=== PATIENT | male | born 1950 | race Caucasian/White ===

== ENCOUNTER 2017-07-16 11:58 | Inpatient (IN) | payer OTHER ==
[~2017-07-16] VITALS: Ht 180.3 cm; Wt 93.1 kg
[~2017-07-16 11:58] MED LIST: ALLOPURINOL100 MG PO; ASPIR 8181 M1 PO; ASPIR-LOW81 MG PO; BRILINTA90 MG PO; LISINOPRIL40 MG PO; LOTREL 5/201 CAPSULE PO; Lipitor PO; Lopressor PO; METOPROLOL TART25 MG PO; OMEPRAZOLE20 M2 PO; PRILOSEC20 MG PO; VITAMIN D1000 UNIT PO; Vitamin D PO; Zestril,Prinivil PO
[2017-07-16 12:29] LABS: BASOPHIL (%) 0.3 % (0-1); EOSINOPHIL (%) 3.2 % (0-5); EOSINOPHIL COUNT 0.4 K/uL (0-0.3); HEMATOCRIT 40.7 % (38.0-50.0); HEMOGLOBIN 14.8 G/DL (12.5-16.6); IMMATURE GRANULOCYTE (%) 0.6 % (0.0-0.7); LYMPHOCYTE COUNT 5.1 K/uL (1.0-2.8); MCH 33.4 PG (29.0-34.0); MCHC 36.4 G/DL (30.0-36.0); MCV 91.9 FL (86-99); MONOCYTE (%) 6.5 % (3-12); MONOCYTE COUNT 0.9 K/uL (0-0.8); NEUTROPHIL (%) 52.4 % (45-76); NEUTROPHIL COUNT 7.3 K/uL (1.8-6.4); PLATELET COUNT 168 K/uL (156-360); RBC DIS.WIDTH-CV 12.4 % (11.8-14.6); RBC DIS.WIDTH-SD 41.6 % (39-53); RED BLOOD COUNT 4.43 M/uL (4.00-5.50); WHITE BLOOD COUNT 13.9 K/uL (4.1-10.2)
[2017-07-16 12:43] LABS: ALBUMIN 3.8 g/dL (3.2-4.8); CHLORIDE 100 mEq/L (99-109); POTASSIUM 3.8 mEq/L (3.7-5.4); SODIUM 134 mEq/L (136-147)
[2017-07-16 12:45] LABS: GLUCOSE 133 mg/dL (70-99); TOTAL PROTEIN 6.7 g/dL (6.4-8.3)
[2017-07-16 12:47] LABS: TOTAL BILIRUBIN 1.1 mg/dL (0.0-1.0)
[2017-07-16 12:49] LABS: ALKALINE PHOSPHATASE 45 IU/L (3-129); CREATININE 0.9 mg/dL (0.6-1.3); GFR ESTIMATE (CALCULATED) > 59 mL/min/ (58.99-99999); TROP-I INTERPRETATION NEGATIVE; TROPONIN-I 0.01 ng/mL (0.0-0.30)
[2017-07-16 12:50] LABS: UREA NITROGEN (BUN) 16 mg/dL (9-23)
[2017-07-16 12:51] LABS: AST (GOT) 38 IU/L (2-34)
[2017-07-16 12:52] LABS: ALT (GPT) 34 IU/L (3-49)
[2017-07-16] MEDS ORDERED: RANITIDINE HCL300 MG PO (18:39)
[2017-07-16] MEDS ORDERED: LOPRESSOR50 MG PO (18:42)
[2017-07-16] MEDS ORDERED: TUMS500 MG PO (18:48)
[2017-07-16 21:04] VITALS: BP 164/98
[2017-07-16 21:58] LABS: HDL CHOLESTEROL 26 MG/DL (Desirable>=40); LDL CHOLESTEROL 64 mg/dL (Desirable<100); NON-HDL CHOLESTEROL 112 mg/dL (Desirable<160); TOTAL CHOLESTEROL 138 mg/dL (Desirable<200); TRIGLYCERIDES 242 MG/DL (Normal: <150)
[2017-07-16 22:46] LABS: Estimated Average Glucose 100 mg/dL (70-123); HEMOGLOBIN A1c (GLYCOHEMOGLOB) 5.1 % HGB (Below 5.7)
[2017-07-17 00:49] LABS: TROP-I INTERPRETATION NEGATIVE; TROPONIN-I 0.03 ng/mL (0.0-0.30)
[2017-07-17 03:28] VITALS: BP 154/86
[2017-07-17 03:35] LABS: APPEARANCE SL.HAZY ((CLEAR)); BILIRUBIN NEGATIVE; BLOOD NEGATIVE; COLOR YELLOW ((YELLOW)); GLUCOSE (STRIP) NEGATIVE; KETONES NEGATIVE; LEUKOCYTES NEGATIVE; NITRITE NEGATIVE; PROTEIN (STRIP) NEGATIVE; SPECIFIC GRAVITY 1.015 (1.000-1.030); UROBILINOGEN 0.2 MG/DL (0.2-1.0)
[2017-07-17 03:37] LABS: BACTERIA NONE SEEN /HPF; EPITHELIAL CELLS NONE SEEN /HPF; MUCUS TRACE /LPF; RED BLOOD CELLS 0-5 /HPF (0-5); UCUL ADDED? NO; WHITE BLOOD CELLS 0-5 /HPF (0-5)
[2017-07-17 07:20] VITALS: BP 161/94
[2017-07-17 07:24] LABS: HEMATOCRIT 39.2 % (38.0-50.0); HEMOGLOBIN 13.8 G/DL (12.5-16.6); MCH 32.7 PG (29.0-34.0); MCHC 35.2 G/DL (30.0-36.0); MCV 92.9 FL (86-99); PLATELET COUNT 141 K/uL (156-360); RBC DIS.WIDTH-CV 12.4 % (11.8-14.6); RBC DIS.WIDTH-SD 42.3 % (39-53); RED BLOOD COUNT 4.22 M/uL (4.00-5.50); WHITE BLOOD COUNT 9.7 K/uL (4.1-10.2)
[2017-07-17 07:47] LABS: TROP-I INTERPRETATION NEGATIVE; TROPONIN-I 0.03 ng/mL (0.0-0.30)
[2017-07-17 11:21] VITALS: BP 141/76
[2017-07-17 17:11] VITALS: BP 161/93
[2017-07-17 20:32] VITALS: BP 180/92
[2017-07-17 20:36] VITALS: BP 150/82
[2017-07-18 01:40] VITALS: BP 171/107
[2017-07-18 08:00] VITALS: BP 169/97
[2017-07-18] MEDS ORDERED: ATORVASTATIN CA80 MG PO (09:45)
[2017-07-18] MEDS ORDERED: CLOPIDOGREL75 MG PO (09:45)
== END 2017-07-18 10:57 | disposition home or self-care (01) | DRG 66 ==
LOC: EME 11:58 → EDOF 18:53 → 5SOUTH 18:53 → ENRESERV 18:54 → 5SOUTH 20:50
PROVIDERS: Emergency Medicine; Hospitalist
DX: I63.213 Cerebral infarction due to unspecified occlusion or stenosis of bilateral vertebral arteries (principal); E83.118 Other hemochromatosis; I10 Essential (primary) hypertension; I49.3 Ventricular premature depolarization; K21.9 Gastro-esophageal reflux disease without esophagitis; K76.0 Fatty (change of) liver, not elsewhere classified; M10.9 Gout, unspecified; I25.10 Atherosclerotic heart disease of native coronary artery without angina pectoris; I25.2 Old myocardial infarction; Z79.82 Long term (current) use of aspirin; Z87.891 Personal history of nicotine dependence; Z95.5 Presence of coronary angioplasty implant and graft
CPT/HCPCS: 70496; 70498; 70551; 71010; 80053; 80061; 81003; 83036; 84484; 85025; 85027; 85651; 93005; 99281; 99285; J1644; J2405; J7030

== ENCOUNTER 2017-07-28 13:03 | Emergency (ER) | payer OTHER ==
[~2017-07-28] VITALS: Ht 180.3 cm; Wt 89.2 kg
[~2017-07-28 13:03] MED LIST changes: +ATORVASTATIN CA80 MG PO; +CLOPIDOGREL75 MG PO; +LOPRESSOR50 MG PO; +RANITIDINE HCL300 MG PO; +TUMS500 MG PO
[2017-07-28 13:31] LABS: AMYLASE 81 IU/L (1-118)
[2017-07-28 13:33] LABS: INTER. NORMALIZED RATIO 1.2
[2017-07-28 13:40] LABS: LIPASE 41 U/L (1.0-51.0)
[2017-07-28 13:42] LABS: TROP-I INTERPRETATION NEGATIVE; TROPONIN-I < 0.01 ng/mL (0.0-0.30)
[2017-07-28 14:28] LABS: CHLORIDE 101 mEq/L (99-109); POTASSIUM 4.1 mEq/L (3.7-5.4); SODIUM 137 mEq/L (136-147)
[2017-07-28 14:29] LABS: HEMATOCRIT 41.7 % (38.0-50.0); HEMOGLOBIN 15.3 G/DL (12.5-16.6); MCH 33.8 PG (29.0-34.0); MCHC 36.7 G/DL (30.0-36.0); MCV 92.3 FL (86-99); RBC DIS.WIDTH-CV 12.5 % (11.8-14.6); RBC DIS.WIDTH-SD 42.4 % (39-53); RED BLOOD COUNT 4.52 M/uL (4.00-5.50); WHITE BLOOD COUNT 15.7 K/uL (4.1-10.2)
[2017-07-28 14:30] LABS: GLUCOSE 126 mg/dL (70-99)
[2017-07-28 14:30] LABS: PLATELET COUNT 255 K/uL (156-360)
[2017-07-28 14:34] LABS: GFR ESTIMATE (CALCULATED) > 59 mL/min/ (58.99-99999)
[2017-07-28 14:35] LABS: UREA NITROGEN (BUN) 20 mg/dL (9-23)
[2017-07-28 15:35] VITALS: BP 135/88
== END 2017-07-28 15:35 | disposition short-term general hospital (02) ==
LOC: EME 13:03
PROVIDERS: Emergency Medicine
DX: I63.02 Cerebral infarction due to thrombosis of basilar artery (principal); R29.810 Facial weakness; R47.1 Dysarthria and anarthria; G81.91 Hemiplegia, unspecified affecting right dominant side; R29.712 NIHSS score 12; Z79.02 Long term (current) use of antithrombotics/antiplatelets; Z79.82 Long term (current) use of aspirin; I10 Essential (primary) hypertension; I25.2 Old myocardial infarction; Z95.5 Presence of coronary angioplasty implant and graft; Z87.891 Personal history of nicotine dependence
CPT/HCPCS: 70450; 70496; 70498; 80048; 80048 91; 82150; 83690; 84484; 85027; 85610; 85730; 93005; 99281; 99285; J2405